=== PATIENT | male | born 1980 | race Caucasian/White ===

== ENCOUNTER 2019-12-19 01:05 | Emergency (ER) | payer OTHER ==
[2019-12-19 01:12] VITALS: BP 118/76; PULSE 51; TEMP 97.8; BMI 28.1
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
== END 2019-12-19 02:47 | disposition home or self-care (01) ==
LOC: FER 01:05
DX: S16.1XXA Strain of muscle, fascia and tendon at neck level, initial encounter (principal); S40.012A Contusion of left shoulder, initial encounter; S80.02XA Contusion of left knee, initial encounter
CPT/HCPCS: 72050-TC-FY; 73030-TC-LT-FY; 73560-TC-LT-FY; 99285-25

== ENCOUNTER 2022-07-18 01:49 | Emergency (ER) | payer SELFPAY ==
[2022-07-18 02:03] VITALS: BMI 27.3
[2022-07-18] MEDS ORDERED: KETOROLAC TROMETHAMINE 15 MG/ML VIAL IVPUSH ONE ×3 (02:33→16:38)
[2022-07-18] MEDS ORDERED: SODIUM CHLORIDE 1,000 ML IV STA (03:00)
[2022-07-18] MEDS ORDERED: KETOROLAC TROMETHAMINE 15 MG/ML VIAL ONE ×3 (03:10→16:52)
[2022-07-18] MEDS ORDERED: MAG HYDROX/AL HYDROX/SIMETH 30 ML UNIT-DOSE CUP PO ONE (03:29)
[2022-07-18] MEDS ORDERED: SIMETHICONE 80 MG TAB.CHEW (FP) PO ONE (03:30)
[2022-07-18 04:00] LABS: BASO % 0.1 % (0-2.0); EOS % 0.5 % (0-4.5); HEMATOCRIT 38.2 % (35.4-49); HEMOGLOBIN 13.7 GM/dL (11.7-16.9); LYMPH % 7.5 % (8-40); MCH 30.3 pg (25.7-33.7); MCHC 35.7 g/dl (32.0-35.9); MEAN CELL VOLUME 84.7 fl (80-96); MEAN PLT VOLUME 8.6 fl (7.5-11.1); MONO % 7.9 % (3.8-10.2); PLATELET COUNT 225 10^3/uL (134-434); RBC 4.52 M/mm3 (4.00-5.60); RDW 12.7 % (11.9-15.9); WHITE BLOOD COUNT 13.7 K/mm3 (4.0-10.0)
[2022-07-18 04:21] LABS: BLOOD UREA NITROGEN 10.2 mg/dL (7-18); CALCIUM 9.3 mg/dL (8.5-10.1)
[2022-07-18 04:25] LABS: CREATININE 0.9 mg/dL (0.55-1.3)
[2022-07-18 04:26] LABS: TOT PROT 7.4 g/dl (6.4-8.2)
[2022-07-18] MEDS ORDERED: SIMETHICONE 80 MG TAB.CHEW (FP) ONE (05:13)
[2022-07-18] MEDS ORDERED: MAG HYDROX/AL HYDROX/SIMETH 30 ML UNIT-DOSE CUP ONE (05:13)
[2022-07-18 08:55] LABS: EPI CELLS 3 /uL (0-25.1); HYALINE CASTS 1 /uL (0-3.1); URINE APPEARANCE CLEAR; URINE BACTERIA 3 /uL (0-1359); URINE BILIRUBIN 1+ (NEGATIVE); URINE COLOR DK YELLOW; URINE GLUCOSE (UA) NEGATIVE (NEGATIVE); URINE KETONE 1+ (NEGATIVE); URINE LEUK ESTERASE NEGATIVE (NEGATIVE); URINE NITRITE NEGATIVE (NEGATIVE); URINE PROTEIN 1+ (NEGATIVE); URINE RBC 22 /uL (0-23.9); URINE WBC 11 /uL (0-25.8)
[2022-07-18] MEDS ORDERED: ACETAMINOPHEN 1000 MG/100 ML BAG IVPB ONE (12:34)
[2022-07-18] MEDS ORDERED: ACETAMINOPHEN INJECTION 100 ML IVPB ONE (12:38)
[2022-07-18 15:19] VITALS: TEMP 97.5
[2022-07-18 17:53] VITALS: BP 115/70; PULSE 75; RESP 17
== END 2022-07-18 18:15 | disposition home or self-care (01) ==
LOC: JER 01:49
PROC: 3E033NZ Introduction of Analgesics, Hypnotics, Sedatives into Peripheral Vein, Percutaneous Approach (ICD-10-PCS; principal; 2022-07-18)
PROC: 3E0333Z Introduction of Anti-inflammatory into Peripheral Vein, Percutaneous Approach (ICD-10-PCS; 2022-07-18)
PROC: 3E0333Z Introduction of Anti-inflammatory into Peripheral Vein, Percutaneous Approach (ICD-10-PCS; 2022-07-18)
PROC: 3E0333Z Introduction of Anti-inflammatory into Peripheral Vein, Percutaneous Approach (ICD-10-PCS; 2022-07-18)
PROC: 3E0337Z Introduction of Electrolytic and Water Balance Substance into Peripheral Vein, Percutaneous Approach (ICD-10-PCS; 2022-07-18)
DX: R10.32 Left lower quadrant pain (principal); R11.10 Vomiting, unspecified; M79.652 Pain in left thigh; H50.812 Duane's syndrome, left eye; R00.0 Tachycardia, unspecified
CPT/HCPCS: 36415; 74174-TC; 74176-TC; 76870-TC; 80053; 81003; 83690; 85025; 87086; 93971-TC; 99285-25